=== PATIENT | male | born 1975 | race Caucasian/White ===

== ENCOUNTER 2019-12-22 18:30 | Emergency (ER) | payer OTHER, SELFPAY ==
[2019-12-22 18:50] VITALS: BP 134/85; PULSE 107; RESP 16; TEMP 37.1; O2SAT 99
--- NOTE | 2019-12-22 18:53 | ED.GENADULT ---
HPI - General Adult General Chief complaint: Anxiety Stated complaint: HBP Time Seen by Provider: 12/22/19 18:53 Source: patient and RN notes reviewed History of Present Illness HPI narrative: Patient is a 44-year-old male who presents the urgent care with complaints of possible high blood pressure. Patient states he has been checking it for the last couple days periodically and states that a few times it has been elevated, 167/117. Patient states that the time of checking his blood pressure he has been under a lot of stress and anxious. States that most recently his significant other has almost from endocarditis . Patient states he then got to thinking that maybe he has endocarditis which increases anxiety. Patient states that he is not a drug user however the significant other originally got endocarditis the first time from heroin use and then the second time from bad teeth . Patient states he has no health history and is currently not on any medications. Patient does not have any history of hypertension. Patient has also reported of intermittent heartburn which is relieved with a glass of milk . Patient states he used to take ranitidine but then quit the medication for unknown reasons. Patient also reports of nausea intermittently for the last month. Denies of any chest pain or ever having shortness of breath. Denies of any headaches or dizziness. Patient is currently symptomatic and checked into get his blood pressure checked . Patient denies of any of the above symptoms at this time. No other acute complaints. Patient does appear anxious but otherwise no acute distress noted. Patient aware of the plan of care. Related Data Home Medications Medication Instructions Recorded Confirmed No Home Medications 12/22/19 12/22/19 Allergies Allergy/AdvReac Type Severity Reaction Status Date / Time Penicillins Allergy Unknown Unknown Verified 12/22/19 19:01 Review of Systems Review of Systems: Narrative: Patient is currently asymptomatic CONSTITUTIONAL: Denies fever, chills, or sweats. EYES: Denies visual changes, redness, or discharge. ENT: Denies rhinorrhea, congestion, sore throat, or otalgia. CARDIOVASCULAR: Denies chest pain, palpitations, or edema. RESPIRATORY: Denies cough or dyspnea. GASTROINTESTINAL: Denies abdominal pain, nausea, vomiting, or diarrhea. GENITOURINARY: Denies dysuria or hematuria. SKIN: Denies rash or itching. MUSCULOSKELETAL: Denies back pain, joint pain, or myalgia. NEUROLOGIC: Denies headache, numbness, or weakness. All other systems reviewed are negative, except as documented in HPI. PMFSH Comments At the time of my signature, I reviewed and agree with the nursing past medical, surgical, social, and family history. There is no relevant family history pertinent to the patient complaint. Exam Narrative: Exam Narrative: GENERAL: This is a well-nourished, well-developed patient, in no apparent distress. HEAD: normocephalic, atraumatic. EYES: PERRL. Sclera clear/white. Vision is grossly intact. EARS: External ears normal NOSE: External nose normal with no obvious nasal discharge THROAT: Mucous membranes moist NECK: Neck supple CARDIOVASCULAR: Regular rate and rhythm without murmurs, gallops, or rubs. RESPIRATORY: Clear to auscultation. Breath sounds equal bilaterally. No wheezes, rales, or rhonchi. SKIN: warm, intact with no suspicious lesions or rash, good texture and turgor. NEURO: awake, alert, and oriented to person, place and time. There were no obvious focal neurologic abnormalities. EXTREMITIES: No clubbing, cyanosis, or edema. Course Vital Signs Vital signs: Vital Signs Temperature 98.8 F 12/22/19 18:50 Pulse Rate 107 H 12/22/19 18:50 Respiratory Rate 16 12/22/19 18:50 Blood Pressure 134/85 12/22/19 18:50 Pulse Oximetry 99 12/22/19 18:50 Temperature 98.8 F 12/22/19 18:50 Pulse Rate 107 H 12/22/19 18:50 Respiratory Rate 16 12/22/19 18:50 Blood
== END 2019-12-22 19:16 | disposition home or self-care (01) ==
PROVIDERS: Emergency Provider Nurse Practitioner Family
DX: F41.9 Anxiety disorder, unspecified (principal)
CPT/HCPCS: 99211; G0463

== ENCOUNTER 2020-03-26 17:28 | Emergency (ER) | payer OTHER, SELFPAY ==
[2020-03-26 17:48] VITALS: BP 131/79; PULSE 80; RESP 16; TEMP 36.8; O2SAT 98
--- NOTE | 2020-03-26 18:14 | ED.WOUNDLAC ---
HPI - Wound/Laceration General Chief Complaint: Wound/Laceration Stated Complaint: laceration right 4/5th finger Time Seen by Provider: 03/26/20 17:55 Source: patient and RN notes reviewed Mode of arrival: ambulatory Limitations: no limitations History of Present Illness HPI narrative: 44 year old male who presents to [facility] with complaints of cutting his right hand between his 4th and 5th fingers on a glass which broke while he was washing dishes. He has full mobility of all fingers of his right hand, with strong right radial pulse, hand is warm and pink with brisk capillary refill to his nail beds.Patient denies any acute pain at this time, states aching type of discomfort which he rates at 2/10.Patient reports that his tetanus shot is not up to date. Onset (ago): hour(s) (1) Extremity Location: Right: hand (web space betwen 4th and 5th fingers right hand) Place: home Patient tetanus UTD: No Context: accidental Associated symptoms: none Treatments prior to arrival: bandage Related Data Home Medications Medication Instructions Recorded Confirmed No Home Medications 12/22/19 03/26/20 Allergies Allergy/AdvReac Type Severity Reaction Status Date / Time Penicillins Allergy Unknown Unknown Verified 03/26/20 17:54 Review of Systems Review of Systems: Narrative: CONSTITUTIONAL: Denies fever, chills, or sweats. EYES: Denies visual changes, redness, or discharge. ENT: Denies rhinorrhea, congestion, sore throat, or otalgia. CARDIOVASCULAR: Denies chest pain, palpitations, or edema. RESPIRATORY: Denies cough or dyspnea. GASTROINTESTINAL: Denies abdominal pain, nausea, vomiting, or diarrhea. GENITOURINARY: Denies dysuria or hematuria. SKIN: Denies rash or itching.Laceration to the right hand between the 4th and 5th finger, some bleeding noted MUSCULOSKELETAL: Denies back pain, joint pain, or myalgia. NEUROLOGIC: Denies headache, numbness, or weakness. PSYCHIATRIC: positive history of anxiety or depression. All systems reviewed & are unremarkable except as noted in HPI and below PMFSH Past Medical History Medical History (Updated 03/29/20 @ 20:57 by Rae Rodriguez NP) Anxiety Surgical History Surgical History (Updated 03/29/20 @ 20:58 by Rae Rodriguez NP) No significant past surgical history Social History Social History (Updated 03/29/20 @ 20:58 by Rae Rodriguez NP) Smoking packs per day: 1 Smoking cigarettes per day: 20.0 Smoking status: Current every day smoker Tobacco type: cigarettes Alcohol intake: never Substance use: never Living arrangements: with family Gender identity (if verbalized by the patient): Male Comments At time of signature, agree with nursing past medical, surgical, social history. There is no relevant family history pertinent to the presenting complaint Exam Narrative: Exam Narrative: GENERAL: Well-appearing, well-nourished, and in no acute distress. HEAD: Normocephalic, atraumatic. EYES: PERRLA and EOMI. ENT: Nares clear, no rhinorrhea or epistaxis. Mucous membranes moist. NECK: Supple. CHEST: Clear to auscultation. No respiratory distress. HEART: Regular rate and rhythm. No murmur heard. Normal peripheral pulses. ABDOMEN: Soft, nontender, nondistended, normal active bowel sounds. EXTREMITIES: Normal range of motion. No edema. SKIN: Warm, dry, no rash.Laceration to the web space between the 4th and 5th finger, some bleeding noted. Patient has full mobility of his fingers with no tingling or numbness voiced strong right radial pulses, hand is warm and pink NEURO: No focal deficits. Alert and oriented x3. Course Vital Signs Vital signs: Vital Signs Temperature 36.8 C 03/26/20 17:48 Pulse Rate 80 03/26/20 17:48 Respiratory Rate 16 03/26/20 17:48 Blood Pressure 131/79 03/26/20 17:48 Pulse Oximetry 98 03/26/20 17:48 Temperature 36.8 C 03/26/20 17:48 Pulse Rate 80 03/26/20 17:48 Respiratory Rate 16 03/26/20 17:48 Blood Pre
[2020-03-26] MEDS: TETANUS,DIPHTHERIA,AC PERTUSSIS ADULT (0.5 ML) BOOSTRIX IM (18:16)
== END 2020-03-26 19:10 | disposition home or self-care (01) ==
PROVIDERS: Emergency Provider Registered Nurse
DX: S61.411A Laceration without foreign body of right hand, initial encounter (principal); Y93.G1 Activity, food preparation and clean up; W25.XXXA Contact with sharp glass, initial encounter; Z23 Encounter for immunization; F17.210 Nicotine dependence, cigarettes, uncomplicated
CPT/HCPCS: 12001; 90471; 90715; 99212; G0463

== ENCOUNTER 2020-09-14 17:34 | Emergency (ER) | payer OTHER, SELFPAY ==
[2020-09-14 17:51] VITALS: BP 109/65; PULSE 61; RESP 16; TEMP 36; O2SAT 98
--- NOTE | 2020-09-14 18:21 | ED.DENTAL ---
HPI - Dental/Oral General Chief complaint: Dental/Oral Stated complaint: tooth pain Time Seen by Provider: 09/14/20 18:22 Source: patient and RN notes reviewed Mode of arrival: ambulatory Limitations: no limitations History of Present Illness HPI Narrative: 45 year old male with complaints of dental pin to the right lower back molar #32 for the past 2 days. Patient states that he has taken Ibuprofen, Aleve and used Oragel with no relief of his pain. Some redness and swelling noted around#32 tooth other gums appearing whitish in color with no drainage noted. Patient states that he has made appointment for [facility]Patient verbalizes past dental problems with abscess and poor dental care, missing teeth noted and other areas of decay noted on exam.Denies any difficulty with swallowing or with his breathing no facial swelling noted. MD Complaint: tooth pain Location: Tooth # (32) Onset (ago): day(s) (2) Relieving factors: NSAIDs Context: history of dental caries and poor dental care Associated symptoms: gum swelling Treatment prior to arrival: oral analgesic Related Data Home Medications Medication Instructions Recorded Confirmed No Home Medications 12/22/19 09/14/20 Allergies Allergy/AdvReac Type Severity Reaction Status Date / Time Penicillins Allergy Unknown Unknown Verified 09/14/20 17:46 Review of Systems Review of Systems: Narrative: CONSTITUTIONAL: Denies fever, chills, or sweats. EYES: Denies visual changes, redness, or discharge. ENT: Denies rhinorrhea, congestion, sore throat, or otalgia.dental pain to #32 tooth with no facial swelling noted. CARDIOVASCULAR: Denies chest pain, palpitations, or edema. RESPIRATORY: Denies cough or dyspnea. GASTROINTESTINAL: Denies abdominal pain, nausea, vomiting, or diarrhea. GENITOURINARY: Denies dysuria or hematuria. SKIN: Denies rash or itching. MUSCULOSKELETAL: Denies back pain, joint pain, or myalgia. NEUROLOGIC: Denies headache, numbness, or weakness. PSYCHIATRIC:History of anxiety or depression. All systems reviewed & are unremarkable except as noted in HPI and below PMFSH Past Medical History Medical History Anxiety Surgical History Surgical History No significant past surgical history Family History Family History (Updated 09/17/20 @ 15:32 by Rae Rodriguez NP) Grandparent Diabetes mellitus Heart disease Mother COPD (chronic obstructive pulmonary disease) Social History Social History (Updated 09/17/20 @ 15:31 by Rae Rodriguez NP) Smoking packs per day: 1 Smoking cigarettes per day: 20.0 Smoking status: Current every day smoker Tobacco type: cigarettes Alcohol intake: former Alcohol use details: states no alcohol for 6 years Substance use: unknown Other substance usage details: per old records cocaine, marijuana use Living arrangements: alone Gender identity (if verbalized by the patient): Male Comments At time of signature, agree with nursing past medical, surgical, social and family history. There is no relevant family history pertinent to the presenting complaint Exam Narrative: Exam Narrative: GENERAL: Well-appearing, well-nourished, and in no acute distress. HEAD: Normocephalic, atraumatic. EYES: PERRLA and EOMI. ENT: Nares clear, no rhinorrhea or epistaxis. Mucous membranes moist.TM's normal with good light reflex, throat pink with no lesions or tonsil swelling, swollen red gums with noted dental caries to teeth, around #32 tooth, voices pain to $32 tooth with other gum areas noted to be whitish in color, no Torey angina noted NECK: Supple.no lymphadenopathy CHEST: Clear to auscultation. No respiratory distress.SAO2 98% on room air HEART: Regular rate and rhythm. No murmur heard. Normal peripheral pulses. ABDOMEN: Soft, nontender, nondistended, normal active bowel sounds. EXT
== END 2020-09-14 18:38 | disposition home or self-care (01) ==
PROVIDERS: Emergency Provider Registered Nurse
DX: K08.89 Other specified disorders of teeth and supporting structures (principal); K02.9 Dental caries, unspecified; K06.1 Gingival enlargement; F17.210 Nicotine dependence, cigarettes, uncomplicated
CPT/HCPCS: 99213; G0463

== ENCOUNTER 2021-09-28 11:28 | Emergency (ER) | payer OTHER, SELFPAY ==
[2021-09-28 11:35] VITALS: BP 133/90; PULSE 91; RESP 16; TEMP 36.6; O2SAT 99
--- NOTE | 2021-09-28 11:43 | ED.BACK ---
HPI - Back Pain/Injury General Chief Complaint: Back Pain/Injury Stated Complaint: lower back pain Time Seen by Provider: 09/28/21 11:43 Source: patient Mode of arrival: ambulatory Limitations: no limitations History of Present Illness HPI Narrative: 46 yo M presents with c/o intermittent low back pain for awhile . No injury. Lifts heavy boxes at work. States sometimes it hurts at work, after work or sometimes when first waking up. Does not take anything to treat the pain. pt was at [facility] getting labs completed and thought he would come here to have back looked at since he was close but also stating that he really needs a work note. Pt ambulatory with steady gait. currently has not back pain. All systems reviewed and negative except as noted above. Related Data Allergies Allergy/AdvReac Type Severity Reaction Status Date / Time Penicillins Allergy Unknown Unknown Verified 09/14/20 17:46 Review of Systems Review of Systems: CONSTITUTIONAL: Denies fever, chills, or sweats. EYES: Denies visual changes, redness, or discharge. ENT: Denies rhinorrhea, congestion, sore throat, or otalgia. CARDIOVASCULAR: Denies chest pain, palpitations, or edema. RESPIRATORY: Denies cough or dyspnea. GASTROINTESTINAL: Denies abdominal pain, nausea, vomiting, or diarrhea. GENITOURINARY: Denies dysuria or hematuria. SKIN: Denies rash or itching. MUSCULOSKELETAL: Reports low back pain. Currently not in any pain. NEUROLOGIC: Denies headache, numbness, or weakness. PSYCHIATRIC: Denies anxiety or depression. All other systems reviewed are negative, except as documented in HPI. [facility] Past Medical History Medical History Anxiety Surgical History Surgical History No significant past surgical history Family History Family History (Updated 09/17/20 @ 15:32 by Rae Rodriguez NP) Grandparent Diabetes mellitus Heart disease Mother COPD (chronic obstructive pulmonary disease) Social History Social History (Updated 09/17/20 @ 15:31 by Rae Rodriguez NP) Smoking packs per day: 1 Smoking cigarettes per day: 20.0 Smoking status: Current every day smoker Tobacco type: cigarettes Alcohol intake: former Alcohol use details: states no alcohol for 6 years Substance use: unknown Other substance usage details: per old records cocaine, marijuana use Gender identity (if verbalized by the patient): Male Comments At time of signature, agree with nursing past medical, surgical, social and family history. There is no relevant family history pertinent to the presenting complaint. Exam Narrative: GENERAL: This is a well-nourished, well-developed patient, in no apparent distress. HEAD: normocephalic, atraumatic. EYES: PERRL. Sclera clear/white. Vision is grossly intact. EARS: External ears normal, auditory canals clear and without drainage, TMs normal without perforation. Hearing grossly intact. NOSE: External nose normal with no obvious nasal discharge, nares without redness, no rhinorrhea. THROAT: Mucous membranes moist, posterior pharynx clear. NECK: Neck supple, non-tender without lymphadenopathy, masses or thyromegaly. CARDIOVASCULAR: Regular rate and rhythm without murmurs, gallops, or rubs. RESPIRATORY: Clear to auscultation. Breath sounds equal bilaterally. No wheezes, rales, or rhonchi. GASTROINTESTINAL: Abdomen soft, non-tender, nondistended. Bowel sounds are active. No hepato-splenomegaly, or palpable masses. No guarding. SKIN: warm, Dry, intact with no suspicious lesions or rash, good texture and turgor. NEURO: awake, alert, and oriented to person, place and time. There were no obvious focal neurologic abnormalities. EXTREMITIES: No joint tenderness, effusion, or edema noted. No calf tenderness. Negative Homans sign bilaterally. BACK: Nontender without deformity. No CVA tenderness. Normal range of motion. Course
== END 2021-09-28 11:55 | disposition home or self-care (01) ==
PROVIDERS: Emergency Provider Nurse Practitioner Family
DX: M54.50 Low back pain, unspecified (principal); F17.210 Nicotine dependence, cigarettes, uncomplicated
CPT/HCPCS: 99213; G0463

== ENCOUNTER 2022-10-20 10:23 | Emergency (ER) | payer OTHER, SELFPAY ==
[2022-10-20 10:31] VITALS: BP 131/86; PULSE 100; RESP 16; TEMP 36.3; O2SAT 98
--- NOTE | 2022-10-20 10:54 | ED.DENTAL ---
HPI - Dental/Oral General Chief complaint: Dental/Oral Stated complaint: tooth pain Time Seen by Provider: 10/20/22 10:54 Source: patient, RN notes reviewed and old records reviewed Mode of arrival: ambulatory Limitations: no limitations History of Present Illness HPI Narrative: 47-year-old male presents to the [facility] with complaints of dental pain to the right lower jaw. States it has been going on for 2 days. Has been taking Aleve. History of dental abscesses in the same location. Has not been to a dental provider in many years Related Data Allergies Allergy/AdvReac Type Severity Reaction Status Date / Time Penicillins Allergy Unknown Unknown Verified 10/20/22 10:37 Review of Systems Review of Systems: All systems reviewed & are unremarkable except as noted in HPI and below Constitutional: Constitutional: Reports no additional constitutional complaints Eyes: Eyes: Reports no additional eye complaints ENT: Reports as per HPI and Reports dental pain Cardiovascular: Cardiovascular: Reports no additional cardiovascular complaints, Denies chest pain and Denies dyspnea Respiratory: Respiratory: Reports no additional respiratory complaints, Denies chest congestion, Denies cough and Denies dyspnea Gastrointestinal: Gastrointestinal: Reports no additional gastrointestinal complaints, Denies abdominal pain, Denies nausea and Denies vomiting Musculoskeletal: Musculoskeletal: Reports no additional musculoskeletal complaints Integumentary/Breasts: Skin/Breast: Reports system reviewed and no additional complaints, except as docu Neurologic: Reports system reviewed and no additional complaints, except as documented Psychiatric: Psychiatric: Reports no additional psychiatric complaints Allergic/Immunologic: Allergic/Immunologic: Reports no additional allergic/immunologic complaints PMFSH Past Medical History Medical History Anxiety Surgical History Surgical History No significant past surgical history Family History Family History Grandparent Diabetes mellitus Heart disease Mother COPD (chronic obstructive pulmonary disease) Social History Social History Smoking packs per day: 1 Smoking cigarettes per day: 20.0 Smoking status: Current every day smoker Tobacco type: cigarettes Alcohol intake: former Alcohol use details: states no alcohol for 6 years Substance use: unknown Other substance usage details: per old records cocaine, marijuana use Living arrangements: alone Gender identity (if verbalized by the patient): Male Comments At the time of my signature, I reviewed and agree with the nursing past medical, surgical, social, and family history. There is no relevant family history pertinent to the patient complaint. Exam Const: General: cooperative, healthy appearing, comfortable, no acute distress, well developed, alert and well nourished Nutritional Appearance: well nourished Orientation/consciousness: patient oriented x3 Limitations: no limitations HENMT: Head: normal to inspection Ears: hearing grossly normal bilaterally and external ears normal Face/Nose/Sinus: Normal external nose present, Normal nares present, Normal nasal mucous membranes and turbinates present and normal facial exam Face and sinus: normal facial exam Mouth: Yes lip normal and Yes moist mucous membranes Teeth and gingiva: abnormal tooth and associated gingiva (molars decayed below gum line, erythema, swelling noted to right lower gum) and poor dentition Throat: posterior oropharynx normal and uvula midline Eyes: General: appearance normal, both eyes and all related structures Alignment and Position: alignment normal Periorbital: periorbital findings normal Conjunctivae: conjunctivae normal Pu
== END 2022-10-20 11:08 | disposition home or self-care (01) ==
PROVIDERS: Emergency Provider Nurse Practitioner
DX: K02.9 Dental caries, unspecified (principal); K04.7 Periapical abscess without sinus; F17.210 Nicotine dependence, cigarettes, uncomplicated
CPT/HCPCS: 99213; G0463

== ENCOUNTER 2023-12-05 17:35 | Emergency (ER) | payer OTHER, SELFPAY ==
[2023-12-05 17:48] VITALS: BP 111/63; PULSE 89; RESP 16; TEMP 37; O2SAT 100
--- NOTE | 2023-12-05 18:00 | ED.GENADULT ---
HPI - General Adult General Chief complaint: Nausea/Vomiting/Diarrhea Stated complaint: nauseated,fever Time Seen by Provider: 12/05/23 17:56 Source: patient and RN notes reviewed Mode of arrival: ambulatory Limitations: no limitations History of Present Illness HPI narrative: Patient presents today complaining nausea, vomiting x2, fever up to 102 yesterday. States symptoms have mostly resolved today, but he called into work today due to some residual weakness and needs a work note. Denies abdominal pain, diarrhea. She took some [id number] medication for his fever yesterday which did help resolve it. He has been able to keep down some food today with fluids. Related Data Home Medications Medication Instructions Recorded Confirmed No Home Medications 12/05/23 12/05/23 Allergies Allergy/AdvReac Type Severity Reaction Status Date / Time Penicillins Allergy Unknown Unknown Verified 12/05/23 17:49 Review of Systems Review of Systems: CONSTITUTIONAL: Denies body aches, chills, or sweats.+ fever EYES: Denies visual changes, redness, or discharge. ENT: Denies rhinorrhea, congestion, sore throat, or otalgia. CARDIOVASCULAR: Denies chest pain, palpitations, or edema. RESPIRATORY: Denies cough or dyspnea. GASTROINTESTINAL: Denies abdominal pain, or diarrhea.+ nausea and vomiting GENITOURINARY: Denies dysuria or hematuria. SKIN: Denies rash, itching, or wounds. MUSCULOSKELETAL: Denies back pain, joint pain, or myalgia. NEUROLOGIC: Denies headache, numbness, tingling, or weakness. PSYCH: Denies depression or anxiety. [facility] Past Medical History Medical History Anxiety Surgical History Surgical History No significant past surgical history Family History Family History Grandparent Diabetes mellitus Heart disease Mother COPD (chronic obstructive pulmonary disease) Social History Social History Smoking packs per day: 1 Smoking cigarettes per day: 20.0 Smoking status: Current every day smoker Tobacco type: cigarettes Alcohol intake: former Alcohol use details: states no alcohol for 6 years Substance use: unknown Other substance usage details: per old records cocaine, marijuana use Living arrangements: alone Gender identity (if verbalized by the patient): Male Comments At time of signature, I have reviewed and agree with nursing past medical, surgical, social and family history unless otherwise noted. Please see nursing chart for further information. There is no relevant family history pertinent to the presenting complaint Exam Narrative: GENERAL: Well-appearing, well-nourished, and in no acute distress. HEAD: Normocephalic, atraumatic. EYES: EOMI. No redness or drainage. Conjunctivae normal. ENT: Mucous membranes pink and moist. NECK: Normal AROM. CHEST: No respiratory distress. Clear to auscultation. HEART: Regular rate and rhythm. No murmur appreciated. Normal peripheral pulses. ABDOMEN: Soft, nontender, nondistended, normal active bowel sounds. EXTREMITIES: Normal range of motion. No edema. SKIN: Warm, dry, no rash. Capillary refill normal. Normal skin turgor. NEURO: No focal deficits. Alert and oriented x3. Gait steady. PSYCH: Normal affect. No signs of depression or anxiety. Course Course Level of Care: Express Care Visit Vital Signs Vital signs: Vital Signs Temperature 98.6 F 12/05/23 17:48 Pulse Rate 89 12/05/23 17:48 Respiratory Rate 16 12/05/23 17:48 Blood Pressure 111/63 12/05/23 17:48 Pulse Oximetry 100 12/05/23 17:48 Oxygen Delivery Room Air 12/05/23 17:48 Temperature 98.6 F 12/05/23 17:48 Pulse Rate 89 12/05/23 17:48 Respiratory Rate 16 12/05/23 17:48 Blood Pressure 1
== END 2023-12-05 18:10 | disposition home or self-care (01) ==
PROVIDERS: Emergency Provider Nurse Practitioner
DX: R11.2 Nausea with vomiting, unspecified (principal); F17.210 Nicotine dependence, cigarettes, uncomplicated
CPT/HCPCS: 99211; 99213; G0463

== ENCOUNTER 2023-12-26 19:23 | Emergency (ER) | payer OTHER, SELFPAY ==
--- NOTE | 2023-12-26 19:24 | ED.DENTAL ---
HPI - Dental/Oral General Chief complaint: Dental/Oral Stated complaint: right side tooth pain Time Seen by Provider: 12/26/23 19:23 Source: patient Mode of arrival: ambulatory Limitations: no limitations History of Present Illness HPI Narrative: Grant is a 48-year-old male patient presenting to the clinic today with complaints right-sided dental pain for the past few days. He reports he has not scheduled a dentist appointment at this time. History of poor dentition. Denies any fever chills Related Data Allergies Allergy/AdvReac Type Severity Reaction Status Date / Time Penicillins Allergy Unknown Unknown Verified 12/26/23 19:24 Review of Systems Review of Systems: Pertinent positives per HPI. Patient denies any fever, chills, rash, headache, visual changes, dizziness, cough, runny nose, sore throat, shortness of breath, chest pain, palpitations, nausea, vomiting, diarrhea, constipation, abdominal pain, or any urinary issues. PMFSH Past Medical History Medical History Anxiety Surgical History Surgical History No significant past surgical history Family History Family History Grandparent Diabetes mellitus Heart disease Mother COPD (chronic obstructive pulmonary disease) Social History Social History Smoking packs per day: 1 Smoking cigarettes per day: 20.0 Smoking status: Current every day smoker Tobacco type: cigarettes Alcohol intake: former Alcohol use details: states no alcohol for 6 years Substance use: unknown Other substance usage details: per old records cocaine, marijuana use Living arrangements: alone Gender identity (if verbalized by the patient): Male Comments At the time of my signature, I reviewed and agree with the nursing past medical, surgical, social, and family history. There is no relevant family history pertinent to the patient complaint. Exam Narrative: General: Well-developed, well nourished, in no apparent distress Head: Normocephalic, atraumatic Eyes: Pupils equally round and reactive to light bilaterally, EOM intact, sclera and conjunctive clear, no discharge, lids normal Ears: TMs intact and clear, ear canals clear, no drainage, grossly hearing normal. Nose: Nares patent, no discharge, no inflammation, no sinus tenderness. Mouth: Oropharynx without lesions or masses, very poor dentition with multiple teeth fracture/decay, MMM. Neck: Supple, trachea midline, no enlargement of anterior or posterior cervical nodes, no thyroid masses or goiter palpable. Cardio: Regular rate and rhythm, s1 and s2 normal, no murmur appreciated. Resp: Clear to auscultation bilaterally anteriorly and posteriorly, no rhonchi, rales, wheezing or rubs Course Course Emergency Course: Portions of this record may have been created with voice recognition software. Level of Care: Express Care Visit Vital Signs Vital signs: Vital signs reviewed MDM - Dental/Oral MDM Narrative Medical decision making narrative: At the time of visit patient is resting comfortably on the exam table. Patient appears to be nontoxic. Plan: I suspect patient has a dental infection. Prescription for clindamycin was sent to the pharmacy. Recommend follow-up with the dentist as soon as possible. Supportive measures were discussed with the patient and they voiced understanding discharge instructions and agrees to treatment plan. Return precautions reviewed Differential Diagnosis Differential diagnosis: Likely gingival abscess, dental caries, toothache, dental abscess, fracture of tooth and aphthous ulcer Discharge Plan Discharge Clinical Impression: Dental infection Patient Disposition: Home, Self-Care Condition: Stable Instructions: Antibiotic
[2023-12-26 19:30] VITALS: BP 104/68; PULSE 90; RESP 12; TEMP 36.9; O2SAT 100
== END 2023-12-26 19:35 | disposition home or self-care (01) ==
PROVIDERS: Emergency Provider Nurse Practitioner Family
DX: K04.7 Periapical abscess without sinus (principal); F17.210 Nicotine dependence, cigarettes, uncomplicated
CPT/HCPCS: 99213; G0463

== ENCOUNTER 2024-02-21 08:51 | Emergency (ER) | payer OTHER, SELFPAY ==
[2024-02-21 08:59] VITALS: BP 112/69; PULSE 103; RESP 16; TEMP 37.2; O2SAT 99
--- NOTE | 2024-02-21 09:09 | ED.URI ---
HPI - URI/Sore Throat General Chief Complaint: Upper Respiratory Infection Stated Complaint: fever,congestion,OCHOA,decrease energy Time Seen by Provider: 02/21/24 09:09 Source: patient, RN notes reviewed and old records reviewed Mode of arrival: ambulatory Limitations: no limitations History of Present Illness HPI Narrative: Patient presents with complaints of headache, body aches, nasal congestion. He reports he believes he has run a fever. He has been taking Tylenol intermittently for his symptoms with moderate relief. Symptoms have been present for 3 days. He is requesting COVID testing. He denies any cough or shortness of breath. Denies any sore throat Related Data Allergies Allergy/AdvReac Type Severity Reaction Status Date / Time Penicillins Allergy Unknown Unknown Verified 02/21/24 08:56 Review of Systems Review of Systems: All systems reviewed & are unremarkable except as noted in HPI and below Constitutional: Constitutional: Reports as per HPI and Reports no additional constitutional complaints ENT: Reports system reviewed and no additional complaints, except as documented and Reports as per HPI Cardiovascular: Cardiovascular: Reports no additional cardiovascular complaints Respiratory: Respiratory: Reports no additional respiratory complaints Gastrointestinal: Gastrointestinal: Reports no additional gastrointestinal complaints Musculoskeletal: Musculoskeletal: Reports as per HPI and Reports myalgias Neurologic: Reports headache(s) [facility] Past Medical History Medical History Anxiety Surgical History Surgical History No significant past surgical history Family History Family History Grandparent Diabetes mellitus Heart disease Mother COPD (chronic obstructive pulmonary disease) Social History Social History Smoking packs per day: 1 Smoking cigarettes per day: 20.0 Smoking status: Current every day smoker Tobacco type: cigarettes Alcohol intake: former Alcohol use details: states no alcohol for 6 years Substance use: unknown Other substance usage details: per old records cocaine, marijuana use Living arrangements: alone Gender identity (if verbalized by the patient): Male Comments At the time of my signature, I reviewed and agree with the nursing past medical, surgical, social, and family history. There is no relevant family history pertinent to the patient complaint. Exam Const: General: cooperative, no acute distress, alert and awake Orientation/consciousness: oriented to person, oriented to place and oriented to time HENMT: Head: normal to inspection Ears: TM's normal bilaterally Face/Nose/Sinus: Normal nasal mucous membranes and turbinates present and Nasal discharge present clear Mouth: Yes moist mucous membranes Resp: Effort & Inspection: normal respiratory effort and able to speak in complete sentences Auscultation: clear to auscultation bilaterally, no crackles, no rales, no rhonchi and no wheezes Cardio: Palpation: normal PMI Rate: regular rate Rhythm: regular rhythm Heart sounds: S1 normal heart sound present and S2 normal heart sound present Neuro: General: oriented to person, oriented to place and oriented to time Cranial nerves: Yes CN's II-XII intact bilaterally Psych: Appearance: grossly normal Thought process: Normal thought process present Insight: Good insight present (Psych) Judgement: Good judgement present (Psych) Course Course Level of Care: Express Care Visit Vital Signs Vital signs: Vital Signs Temperature 99.0 F 02/21/24 08:59 Pulse Rate 103 H 02/21/24 08:59 Respiratory Rate 16 02/21/24 08:59 Blood Pressure 112/69 02/21/24 08:59 Pulse Oximetry 99 02/21/24 08:59 Oxygen Delivery Room Air
[2024-02-21 09:31] LABS: EDINFLUASCREEN Negative; EDINFLUBSCREEN Negative
== END 2024-02-21 09:33 | disposition home or self-care (01) ==
PROVIDERS: Emergency Provider Nurse Practitioner Family
DX: J06.9 Acute upper respiratory infection, unspecified (principal); Z20.822 Contact with and (suspected) exposure to COVID-19; F17.210 Nicotine dependence, cigarettes, uncomplicated
CPT/HCPCS: 87426; 87804; 99213; G0463

== ENCOUNTER 2024-11-30 18:48 | Emergency (ER) | payer OTHER, SELFPAY ==
--- NOTE | ~2024-11-30 | XR_ITS ---
XR hand RT min 3V Ordering provider: Yudith Escoto APRN History: . decreased ROM wrist and finger x 2 weeks . Comparison: None. FINDINGS: BONES: No definite acute fracture or dislocation. Possible avulsion fracture at the base of the middl e phalanx of the little finger is not excluded. Evaluation for tenderness in the area advised. JOINT SPACES: Osteoarthritic changes of the first interphalangeal joint. Narrowing of the proximal an d distal interphalangeal joints suggestive of osteoarthritic changes. SOFT TISSUES: Normal. IMPRESSION: Possible avulsion fracture at the base of the middle phalanx of the little finger. Clinical correlati on advised. Polyarticular osteoarthritic changes. Reviewed, dictated and finalized at location A. IMPRESSION: Possible avulsion fracture at the base of the middle phalanx of the little fing er. Clinical correlation advised. Polyarticular osteoarthritic changes.
--- NOTE | 2024-11-30 18:55 | ED_ITS ---
HPI - General Adult General Chief complaint: Extremity Injury, Upper Stated complaint: Right Hand Fingers Pain Time Seen by Provider: 11/30/24 18:52 Source: patient, RN notes reviewed and old records reviewed Mode of arrival: ambulatory Limitations: no limitations History of Present Illness HPI narrative: 49-year-old male presents to the [facility] with concerns that he is not able to completely straighten his fingers, move his wrist for the last 2 weeks. Denies any injury. Denies any pain. Patient denies any significant past medical history. Treatments prior to arrival: none Related Data Allergies Allergy/AdvReac Type Severity Reaction Status Date / Time Penicillins Allergy Unknown Unknown Verified 11/30/24 19:00 Review of Systems Review of Systems: All systems reviewed & are unremarkable except as noted in HPI and below Constitutional: Constitutional: Reports no additional constitutional complaints ENT: Reports system reviewed and no additional complaints, except as documented Cardiovascular: Cardiovascular: Reports no additional cardiovascular complaints, Denies chest pain and Denies dyspnea Respiratory: Respiratory: Reports no additional respiratory complaints, Denies chest congestion, Denies cough and Denies dyspnea Musculoskeletal: Musculoskeletal: Reports as per HPI and Reports limited range of motion Integumentary/Breasts: Skin/Breast: Reports system reviewed and no additional complaints, except as docu PMFSH Past Medical History Medical History Anxiety Surgical History Surgical History No significant past surgical history Family History Family History Grandparent Diabetes mellitus Heart disease Mother COPD (chronic obstructive pulmonary disease) Social History Social History Smoking packs per day: 1 Smoking cigarettes per day: 20.0 Smoking status: Current every day smoker Tobacco type: cigarettes Alcohol intake: former Alcohol use details: states no alcohol for 6 years Substance use: unknown Other substance usage details: per old records cocaine, marijuana use Living arrangements: alone Gender identity (if verbalized by the patient): Male Comments At the time of my signature, I reviewed and agree with the nursing past medical, surgical, social, and family history. There is no relevant family history pertinent to the patient complaint. Exam Const: General: cooperative, comfortable, no acute distress, well developed, alert and well nourished Nutritional Appearance: well nourished Orientation/consciousness: patient oriented x3 Limitations: no limitations HENMT: Head: normal to inspection Eyes: General: appearance normal, both eyes and all related structures Alignment and Position: alignment normal Neck: Neck: normal visual inspection, full ROM, no lymphadenopathy and no meningeal signs Chest: Chest palpation & inspection: normal inspection of the chest Resp: Effort & Inspection: normal respiratory effort and able to speak in complete sentences Cardio: Rate: regular rate Skin: General skin exam: normal color and no rashes or lesions noted Rashe s: no rashes Neuro: General: patient oriented x3, gait normal, moves all extremities and no meningeal signs Cognition (Neuro): normal cognition Speech: normal speech Gait exam (Neuro): Normal gait present Extrem: General: normal to inspection, full ROM, capillary refill normal and normal gait Right upper extremity: wrist abnormal ROM with range as follows (Unable to flex or extend full range.), normal vascular exam and radial pulse present; no tenderness, no swelling, no lacerations, no ecchymosis and no crepitus and Extremity exam: right hand abnormal ROM of finger (Unable to completely make a fist, or extend fingers especially 4/ 5) and no swelling; no abrasions, no lacerations and no ecchymosis Psych: Appearance: grossly normal and well kempt Mental Status: mental status grossly normal Speech and movement: Normal speech and movement present and Clear speech present Affect: normal affect Attitude: cooperative Course Course Level of Care: Express Care Visit Vital Signs Vital signs: Vital Signs Temperature 98.1 F 11/30/24 18:56 Pulse Rate 87 11/30/24 18:56 Respiratory Rate 16 11/30/24 18:56 Blood Pressure 141/82 H 11/30/24 18:56 Pulse Oximetry 100 11/30/24 18:56 Oxygen Delivery Room Air 11/30/24 18:56 Temperature 98.1 F 11/30/24 18:56 Pulse Rate 87 11/30/24 18:56 Respiratory Rate 16 11/30/24 18:56 Blood Pressure 141/82 H 11/30/24 18:56 Pulse Oximetry 100 11/30/24 18:56 Oxygen Delivery Room Air 11/30/24 18:56 Reviewed Medical Decision Making MDM Narrative Medical decision making narrative: Patient sitting in exam room. For the last 2 weeks has been having trouble extending and flexing fingers on the right hand as well as the wrist. Has not seek treatment. Denies any injury. Denies any pain. No treatment prior to arrival X-ray shows polyarticular osteoarthritis Patient appropriate for outpatient treatment with close follow-up. Handout given for primary care providers Discharge instructions reviewed with patient, as well as provided in writing per nursing staff. The instructions also include specific and strict return/GO TO THE ER as well as f/u information. All questions have been answered, and the patient deny any further questions with discharge and discharge plan. Some parts of this dictation were generated by voice recognition software and may contain typographical and/or grammatical inaccuracies. Differential Diagnosis Differential Diagnosis: Dislocations, osteoarthritis, ligament injury, rheumatoid arthritis Medical Records Medical records reviewed: Yes I reviewed the external patient's medical records. Vital Signs Vital Signs: Vital Signs Temperature 98.1 F 11/30/24 18:56 Pulse Rate 87 11/30/24 18:56 Respiratory Rate 16 11/30/24 18:56 Blood Pressure 141/82 H 11/30/24 18:56 Pulse Oximetry 100 11/30/24 18:56 Oxygen Delivery Room Air 11/30/24 18:56 Temperature 98.1 F 11/30/24 18:56 Pulse Rate 87 11/30/24 18:56 Respiratory Rate 16 11/30/24 18:56 Blood Pressure 141/82 H 11/30/24 18:56 Pulse Oximetry 100 11/30/24 18:56 Oxygen Delivery Room Air 11/30/24 18:56 Reviewed Lab Data Lab results reviewed: Yes I reviewed the patient's lab results. Labs: Reviewed Imaging Data Radiologist's impression: XR hand RT min 3V Ordering provider: Yudith Escoto APRN History: . decreased ROM wrist and finger x 2 weeks . Comparison: None. FINDINGS: BONES: No definite acute fracture or dislocation. Possible avulsion fracture at the base of the middle phalanx of the little finger is not excluded. Evaluation for tenderness in the area advised. JOINT SPACES: Osteoarthritic changes of the first interphalangeal joint. Narrowing of the proximal and distal interphalangeal joints suggestive of osteoarthritic changes. SOFT TISSUES: Normal. IMPRESSION: Possible avulsion fracture at the base of the middle phalanx of the little finger. Clinical correlation advised. Polyarticular osteoarthritic changes. Critical Care Time Critical Care Time Critical Care Time: No Discharge Plan Discharge Clinical Impression: Polyarticular osteoarthritis Patient Disposition: Home Condition: Stable Instructions: Osteoarthritis (ED) Additional Instructions: The most important part of your cares finding a primary care provider list have been given to you please start making phone calls. You will most likely need physical therapy or occupational therapy in regards to your hands. You can try taking anti-inflammatories 1 has been prescribed for you. Patient Language: Mohawk Prescriptions: New indomethacin 50 mg capsule 50 mg PO BID Qty: 10 0RF Rx Instructions: administer with food or milk Follow-up/Referrals: PHYSICIAN,ANALYTICAL CHEMIST [Primary Care Provider] - Regan Walton MD [Physician] - Time of Disposition: 20:13
[2024-11-30 18:56] VITALS: BP 141/82; PULSE 87; RESP 16; TEMP 36.7; O2SAT 100
== END 2024-11-30 20:24 | disposition home or self-care (01) ==
PROVIDERS: Emergency Provider Nurse Practitioner
DX: M19.041 Primary osteoarthritis, right hand (principal); F17.210 Nicotine dependence, cigarettes, uncomplicated
CPT/HCPCS: 73130; 99213; G0463

== ENCOUNTER 2025-02-05 11:42 | Emergency (ER) | payer OTHER, SELFPAY ==
--- NOTE | 2025-02-05 11:43 | ED_ITS ---
HPI - Extremity Injury (Lower) General Chief Complaint: Skin/Abscess/Foreign Body Stated Complaint: Stepped on a nail Time Seen by Provider: 02/05/25 11:45 Source: patient Mode of arrival: ambulatory Limitations: no limitations History of Present Illness HPI Narrative: Patient is a 49-year-old male presenting with puncture wound to left foot. Patient states it happened 3 days ago and is unsure if he needs a tetanus shot. Patient states it is only slightly painful on palpation but has not had any swelling, redness or drainage from wound. Patient states he washed it as soon as he removed the nail. Related Data Allergies Allergy/AdvReac Type Severity Reaction Status Date / Time Penicillins Allergy Unknown Unknown Verified 02/05/25 11:43 Review of Systems 2 Review of Systems: All systems reviewed & are unremarkable except as noted in HPI and below Constitutional: Constitutional: Denies body ache(s), Denies chills, Denies fatigue, Denies fever(s), Denies headache(s), Denies malaise and Denies weakness Eyes: Eyes: Denies blurry vision, Denies irritation and Denies loss of vision ENT: Denies otalgia, Denies headache(s), Denies nasal discharge, Denies sinus pain and Denies sore throat Cardiovascular: Cardiovascular: Denies chest pain, Denies irregular heart rhythm and Denies dyspnea Respiratory: Respiratory: Denies dyspnea Gastrointestinal: Gastrointestinal: Denies abdominal pain, Denies melena, Denies hematochezia, Denies diarrhea, Denies nausea and Denies vomiting Musculoskeletal: Musculoskeletal: Denies back pain, Denies myalgias and Denies arthralgias Integumentary/Breasts: Skin/Breast: Denies pruritus, Denies rash and Reports wounds Neurologic: Denies headache(s), Denies loss of vision and Denies weakness Psychiatric: Psychiatric: Reports no additional psychiatric complaints Endocrine: Endocrine: Denies fatigue PMFSH Past Medical History Medical History Anxiety Surgical History Surgical History No significant past surgical history Family History Family History Grandparent Diabetes mellitus Heart disease Mother COPD (chronic obstructive pulmonary disease) Social History Social History Smoking packs per day: 1 Smoking cigarettes per day: 20.0 Smoking status: Current every day smoker Tobacco type: cigarettes Alcohol intake: former Alcohol use details: states no alcohol for 6 years Substance use: unknown Other substance usage details: per old records cocaine, marijuana use Living arrangements: alone Gender identity (if verbalized by the patient): Male Comments At time of signature, agree with nursing past medical, surgical, social and family history. There is no relevant family history pertinent to the presenting complaint. Exam 2 Const: General: cooperative, healthy appearing, comfortable, no acute distress and well nourished Nutritional Appearance: well nourished O rientation/consciousness: patient oriented x3 Limitations: no limitations HENMT: Head: normal to inspection, normocephalic and atraumatic Ears: h earing grossly normal bilaterally and external ears normal Face/Nose/Sinus: N ormal external nose present, normal facial exam and face symmetric Face and sinus: normal facial exam and face symmetric Mouth: Yes lip normal Eyes: General: appearance normal, both eyes and all related structures A lignment and Position: alignment normal and position normal Periorbital: p eriorbital findings normal Eyelids: eyelids normal Pupils: Equal, round and reactive pupils present EOM: EOMs intact bilaterally Neck: Neck: normal visual inspection, full ROM and supple Chest: Chest palpation & inspection: normal inspection of the chest Resp: Effort & Inspection: normal respiratory effort and able to speak in complete sentences Auscultation: clear to auscultation bilaterally Cardio: Rate: regular rate Rhythm: regular rhythm Heart sounds: S1 normal heart sound present and S2 normal heart sound present GI: Inspection: normal to inspection Skin: General skin exam: normal color and no rashes or lesions noted Neuro: General: patient oriented x3 and moves all extremities Cranial nerves: Yes Equal, round and reactive pupils present Speech: normal speech Gait exam (Neuro): Normal gait present Extrem: General: normal to inspection, full ROM and no edema Ankle/foot/toe images: 1. Closed puncture wound. No erythema, warmth, drainage, induration. Mild tenderness on palpation Psych: Appearance: grossly normal and well kempt Mental Status: mental status grossly normal Speech and movement: Normal speech and movement present Affect: normal affect Attitude: cooperative Thought process: Normal thought process present Course Course Emergency Course: Patient is aware of diagnosis, understands and agrees to treatment plan. Anticipatory guidance given. Patient agrees to follow-up as directed and is aware of reasons to seek care at the emergency department. Portions of this record may have been created with voice recognition software Level of Care: Express Care Visit Vital Signs Vital signs: Vital Signs Temperature 36.8 C 02/05/25 11:50 Pulse Rate 82 02/05/25 11:50 Respiratory Rate 16 02/05/25 11:50 Blood Pressure 126/71 02/05/25 11:50 Pulse Oximetry 99 02/05/25 11:50 Oxygen Delivery Room Air 02/05/25 11:50 Temperature 36.8 C 02/05/25 11:50 Pulse Rate 82 02/05/25 11:50 Respiratory Rate 16 02/05/25 11:50 Blood Pressure 126/71 02/05/25 11:50 Pulse Oximetry 99 02/05/25 11:50 Oxygen Delivery Room Air 02/05/25 11:50 Reviewed MDM - Extremity Injury (Lower) MDM Narrative Medical decision making narrative: Tetanus shot was updated today, last tetanus shot was March 2020. Discussed covering patient with antibiotics as a precaution. Patient declined stating he does not feel like they are necessary. Pt well hydrated appearing, in no respiratory distress, hemodynamically stable. Recommend supportive care. The patient is stable at time of discharge the clinical impression was discussed and the patient was given the opportunity to ask questions, which were addressed as completely as possible given the information available at present. Anticipatory guidance and return to care precautions were discussed and the importance of primary care follow-up was stressed and encouraged. The patient voiced understanding of the plan, indications to return, and the need for follow-up. Exam findings show no acute concerns or changes Patient is appropriate for outpatient treatment and follow-up. Differential Diagnosis Differential diagnosis: Likely puncture wound of foot Medical Records Attestation: I reviewed the patient's medical records. Discharge Plan Discharge Clinical Impression: Puncture wound of foot Qualifiers: Encounter type: initial encounter Laterality: left Qualified Code(s): S91.332A - Puncture wound without foreign body, left foot, initial encounter Patient Disposition: Home Condition: Stable Instructions: Diphtheria/Acellular Pertussis/Tetanus Booster Vaccine (By injection), Puncture Wound in the Foot (ED) Additional Instructions: Your tetanus shot was updated today Wound dressed with topical Bacitracin and sterile gauze. Apply antibiotic ointment after warm soaks BID. Keep wound covered. Go to the emergency department if you have worsening redness, swelling or pus. Patient Language: Persian Follow-up/Referrals: Jason Cabrera MD [Physician] - 3 Days Time of Disposition: 12:02
[2025-02-05 11:50] VITALS: BP 126/71; PULSE 82; RESP 16; TEMP 36.8; O2SAT 99
[2025-02-05] MEDS: TETANUS,DIPHTHERIA,AC PERTUSSIS ADULT (0.5 ML) BOOSTRIX IM (12:03)
== END 2025-02-05 12:09 | disposition home or self-care (01) ==
PROVIDERS: Emergency Provider Nurse Practitioner Family
DX: S91.332A Puncture wound without foreign body, left foot, initial encounter (principal); F17.210 Nicotine dependence, cigarettes, uncomplicated; Z20.822 Contact with and (suspected) exposure to COVID-19; Z23 Encounter for immunization; W45.0XXA Nail entering through skin, initial encounter
CPT/HCPCS: 0202U; 90471; 90715; 99212; G0463